=== PATIENT | female | born 1960 | race Hispanic/Latino ===

== ENCOUNTER 2025-09-05 08:00 | Outpatient (CLI) | payer OTHER | END 2025-09-05 08:01 | disposition home or self-care (01) | LOC: PET 08:00 | PROVIDERS: ATTEND Internal Medicine Hematology & Oncology | DX: C34.32 Malignant neoplasm of lower lobe, left bronchus or lung (principal); J90 Pleural effusion, not elsewhere classified; R91.8 Other nonspecific abnormal finding of lung field | CPT/HCPCS: 78815; A9552 ==

== ENCOUNTER 2025-09-05 10:50 | Outpatient (CLI) | payer OTHER | END 2025-09-05 10:51 | disposition home or self-care (01) | LOC: MRI 10:50 | PROVIDERS: ATTEND Internal Medicine Hematology & Oncology | DX: C34.32 Malignant neoplasm of lower lobe, left bronchus or lung (principal) | CPT/HCPCS: 70553; 76376; 78815; 80053; 85025; A9552 ==

== ENCOUNTER 2025-10-03 16:06 | Outpatient (CLI) | payer OTHER | END 2025-10-03 16:07 | disposition home or self-care (01) | LOC: SCSRAD 16:06 | PROVIDERS: ATTEND Internal Medicine | DX: C34.32 Malignant neoplasm of lower lobe, left bronchus or lung (principal); J90 Pleural effusion, not elsewhere classified; Z95.828 Presence of other vascular implants and grafts | CPT/HCPCS: 71048; 80053; 85025 ==

== ENCOUNTER 2025-11-14 09:35 | Outpatient (CLI) | payer OTHER | END 2025-11-14 09:36 | disposition home or self-care (01) | LOC: RAD 09:35 | PROVIDERS: ATTEND Otolaryngology | DX: R13.19 Other dysphagia (principal) | CPT/HCPCS: 74230 ==